=== PATIENT | female | born 1935 | race Caucasian/White ===

== ENCOUNTER 2016-10-21 14:49 | Inpatient (IN) ==
--- NOTE | 2016-10-21 18:40 | HISTORY AND PHYSICAL ---
SUBJECTIVE: Respite care for 5 days. HISTORY OF PRESENT ILLNESS: She is a 81-year-old pleasant white female, was admitted to the hospital respite care for 5 days. She is not offering any complaints. She has been bedridden without any activities of daily living and declining of instrumental activities. PAST MEDICAL HISTORY: Reported dementia, paroxysmal atrial fibrillation, coronary artery disease, hypertension, hyperlipidemia, chronic anxiety, depression, hypothyroidism, history of C. difficile colitis, history of GI bleeding, stage II sacral ulcer. Chronic debility nearly bed bound. PAST SURGICAL HISTORY: Cataract surgery, partial colectomy, hysterectomy, right rotator cuff surgery, scar present in the lower abdomen. MEDICATIONS: Senna 1 tablet p.o. b.i.d., Seroquel 100 daily, potassium 10 mEq daily, Prilosec 20 daily, Macrobid 100 daily, Fleet as needed, Klonopin 1 mg p.o. b.i.d., levothyroxine 75 mcg daily, Roxanol as needed, oxygen as needed, potassium 10 mEq daily, iron C Plus 1 tablet daily, Seroquel 100 at bedtime. ALLERGIES: Sulfa drugs. SOCIAL HISTORY: Lives in [place]. Single, bedridden without any activities of daily living. Living will, do not resuscitate. FAMILY HISTORY: Noncontributory. REVIEW OF SYSTEMS: HEENT: No headache. No vision problem. Cardiopulmonary: No chest pain, shortness of breath, PND, orthopnea. GI: No nausea, vomiting, abdominal pain. : Foul smelling urine. Skin: Had a stage II pressure ulcer on the back. Extremities: No swelling of feet. Contracted. PHYSICAL EXAMINATION: VITAL SIGNS: Stable. GENERAL: Weight 89 pounds, emaciated, contracted, unable to move the left upper extremity and lower extremity. HEENT: Within normal limits. CHEST: Clear. HEART: Sounds are regular. BELLY: Soft, scaphoid, stage II sacral ulcer noted. EXTREMITIES: Dry skin, pes cavus present, contracted in position. ASSESSMENT AND PLAN: 81-year-old white female admitted to the hospital respite care for 5 days. 1. Care of the skin, bladder, and bowels. 2. Stage II pressure ulcer. Continue on DuoDERM patches. 3. Living will, do not resuscitate. 4. Reconcile home medications. 5. Anxiety, depression. Cymbalta 60 p.o. b.i.d., Seroquel 100 bedtime. 6. Hypothyroidism on Synthroid 75 daily. 7. Chronic urinary tract infection prophylaxis on Macrobid. 8. She will stay for next 5 days. cc: Gustavo Love MD
[2016-10-21] MEDS ORDERED: ATIVAN PO PRN (19:03)
[2016-10-21] MEDS ORDERED: COMPAZINE PO PRN (19:04)
[2016-10-21] MEDS ORDERED: COMPAZINE PR PRN (19:05)
[2016-10-21] MEDS ORDERED: LEVSIN-SL SL PRN (19:06)
[2016-10-21] MEDS ORDERED: IMODIUM PO PRN (19:08)
[2016-10-21] MEDS ORDERED: LOMOTIL PO PRN (19:11)
[2016-10-21] MEDS ORDERED: PERICOLACE PO PRN (19:15)
[2016-10-21] MEDS ORDERED: MAALOX PLUS LIQUID PO PRN (19:18)
[2016-10-21] MEDS ORDERED: ROBITUSSIN-DM PO PRN (19:19)
[2016-10-21] MEDS ORDERED: GLYCERIN ADULT PR PRN (19:24)
[2016-10-21] MEDS ORDERED: DULCOLAX PR PRN (19:26)
[2016-10-21] MEDS ORDERED: FLEET ENEMA PR PRN (19:27)
[2016-10-21] MEDS ORDERED: ATROPINE 1 % OPHTH SOLN SL PRN (19:40)
[2016-10-21] MEDS ORDERED: DIFLUCAN PO PRN (19:43)
[2016-10-21] MEDS ORDERED: DESYREL PO PRN (19:44)
[2016-10-21] MEDS ORDERED: BOUDREAUXS BUTT PASTE TOP PRN (19:46)
[2016-10-21] MEDS ORDERED: TYLENOL PR PRN (19:50)
[2016-10-21] MEDS ORDERED: TYLENOL PO PRN (19:50)
[2016-10-21] MEDS ORDERED: EUCERIN CREAM TOP PRN (19:51)
[2016-10-21] MEDS ORDERED: BENADRYL PO PRN (19:52)
[2016-10-21] MEDS ORDERED: PYRIDIUM PO PRN (19:54)
[2016-10-21] MEDS ORDERED: HALDOL PO PRN (19:56)
[2016-10-21] MEDS: KLONOPIN PO SCH (20:15)
[2016-10-21] MEDS: NORCO-7.5 PO PRN (20:15)
[2016-10-21] MEDS: BUSPAR PO SCH (20:16)
[2016-10-21] MEDS: CYMBALTA PO SCH (20:16)
[2016-10-21] MEDS: SEROQUEL PO SCH (20:16)
[2016-10-21] MEDS: ROXANOL CONC. LIQUID PO PRN (23:49)
[2016-10-22] MEDS: NORCO-7.5 PO PRN ×4 (00:27→22:35)
[2016-10-22] MEDS: SYNTHROID PO SCH (06:28)
[2016-10-22] MEDS: PRILOSEC PO SCH (06:28)
[2016-10-22] MEDS: ROXANOL CONC. LIQUID PO PRN ×2 (06:29→17:26)
[2016-10-22] MEDS: BOUDREAUXS BUTT PASTE TOP SCH (08:36)
[2016-10-22] MEDS: KLOR-CON PO SCH (08:37)
[2016-10-22] MEDS: CYMBALTA PO SCH ×2 (08:37→22:34)
[2016-10-22] MEDS: BUSPAR PO SCH ×2 (08:37→22:34)
[2016-10-22] MEDS: KLONOPIN PO SCH ×2 (08:37→22:34)
[2016-10-22] MEDS: MACROBID PO SCH (08:37)
--- NOTE | 2016-10-22 13:43 | PROGRESS NOTE ---
DATE: 10/22/2016 SUBJECTIVE: Ms Roque is respite care. She has dementia, has atrial fibrillation and chronic UTI. Her vital signs are stable. We will continue with the current management. cc: MD Gustavo Odell MD
[2016-10-22] MEDS: SEROQUEL PO SCH (22:34)
[2016-10-23] MEDS: NORCO-7.5 PO PRN ×2 (02:40→21:31)
[2016-10-23] MEDS: PRILOSEC PO SCH ×2 (05:11→08:17)
[2016-10-23] MEDS: SYNTHROID PO SCH ×2 (05:12→08:18)
[2016-10-23] MEDS: ROXANOL CONC. LIQUID PO PRN ×3 (08:21→23:21)
[2016-10-23] MEDS: KLONOPIN PO SCH ×2 (08:22→21:33)
[2016-10-23] MEDS: MACROBID PO SCH (08:22)
[2016-10-23] MEDS: BUSPAR PO SCH ×2 (08:22→21:31)
[2016-10-23] MEDS: KLOR-CON PO SCH (08:22)
[2016-10-23] MEDS: CYMBALTA PO SCH ×2 (08:22→21:31)
[2016-10-23] MEDS: BOUDREAUXS BUTT PASTE TOP SCH (08:23)
--- NOTE | 2016-10-23 15:12 | PROGRESS NOTE ---
DATE: 10/23/2016 Ms. Roque is a respite patient. She has severe dementia. She is somewhat drowsy today. Vital signs are stable. Lungs are clear. Heart sounds are normal. We will continue with the current management. -0 cc: MD Gustavo Odell MD
[2016-10-23] MEDS: SEROQUEL PO SCH (21:31)
[2016-10-24] MEDS: PRILOSEC PO SCH ×2 (05:10→06:29)
[2016-10-24] MEDS: NORCO-7.5 PO PRN (05:11)
[2016-10-24] MEDS: SYNTHROID PO SCH ×2 (05:11→06:30)
[2016-10-24] MEDS: KLONOPIN PO SCH (08:08)
[2016-10-24] MEDS: CYMBALTA PO SCH (08:08)
[2016-10-24] MEDS: KLOR-CON PO SCH (08:10)
[2016-10-24] MEDS: MACROBID PO SCH (08:10)
[2016-10-24] MEDS: BUSPAR PO SCH (08:10)
[2016-10-24] MEDS: BOUDREAUXS BUTT PASTE TOP SCH (09:37)
--- NOTE | 2016-10-24 20:16 | PROGRESS NOTE ---
DATE: 10/24/2016 SUBJECTIVE: Interval history was reviewed. Patient is stable over the weekend. Caregivers are hospital assisting for the nutrition. REVIEW OF SYSTEMS: None reported. OBJECTIVE: Vitals: Stable, afebrile, pulse is 94, blood pressure is 140/79. The patient remains demented, contracted. The rest of the exam is benign. ASSESSMENT AND PLAN: A 81-year-old white female with end-stage dementia, stage II pressure ulcers, admitted to the hospital, respite care. Continue care of the skin, bladder, and bowels. Stage II pressure ulcer. Continue dressing and continue present medical therapy. Recurrent urinary tract infection, on Macrobid prophylaxis. Living will, Do Not Resuscitate LEVEL OF DOCUMENTATION: 15 minutes. cc: Gustavo Love MD
[2016-10-25] MEDS: KLONOPIN PO SCH ×3 (00:12→19:37)
[2016-10-25] MEDS: BUSPAR PO SCH ×2 (00:12→08:38)
[2016-10-25] MEDS: SEROQUEL PO SCH ×2 (00:12→19:37)
[2016-10-25] MEDS: CYMBALTA PO SCH ×3 (00:12→19:37)
[2016-10-25] MEDS: PRILOSEC PO SCH ×2 (05:41→06:01)
[2016-10-25] MEDS: SYNTHROID PO SCH ×2 (05:41→06:01)
[2016-10-25] MEDS: KLOR-CON PO SCH (08:39)
[2016-10-25] MEDS: MACROBID PO SCH (08:39)
[2016-10-25] MEDS: BOUDREAUXS BUTT PASTE TOP SCH (09:05)
[2016-10-25] MEDS: NORCO-7.5 PO PRN (14:04)
[2016-10-25] MEDS: ROXANOL CONC. LIQUID PO PRN (15:14)
--- NOTE | 2016-10-25 18:08 | PROGRESS NOTE ---
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 No complaints. Objective: Vitals: Are stable. Afebrile. Pulse is 90. Blood pressure is 120/73, room air 98%. HEENT: Exam within normal limits. Neck: Supple. No lymphadenopathy. Chest: Clear. Heart: Sounds are regular. Abdomen: Belly is soft, nontender. Good bowel sounds and no masses palpable. Extremities: Sacral ulcer is slowly healing well. ASSESSMENT AND PLAN: 1. Respite care for 5 days. Hopefully will be discharged home in the morning. Continue present medical therapy. 2. Living will, Do Not Resuscitate. LEVEL OF DOCUMENTATION: 15 minutes. cc: Gustavo Love MD
[2016-10-26] MEDS: SEROQUEL PO SCH (01:58)
[2016-10-26] MEDS: BUSPAR PO SCH ×2 (01:58→08:37)
[2016-10-26] MEDS: KLONOPIN PO SCH ×2 (01:58→09:00)
[2016-10-26] MEDS: CYMBALTA PO SCH ×2 (01:59→08:37)
[2016-10-26] MEDS: PRILOSEC PO SCH (05:59)
[2016-10-26] MEDS: SYNTHROID PO SCH (06:00)
[2016-10-26 08:19] VITALS: BP 123/77
[2016-10-26] MEDS: KLOR-CON PO SCH (08:36)
[2016-10-26] MEDS: MACROBID PO SCH (08:36)
--- NOTE | 2016-10-26 21:24 | DISCHARGE SUMMARY ---
ADMISSION DATE: 10/21/2016 DISCHARGE DATE: 10/26/2016 DISCHARGING DIAGNOSIS: 1. Dementia. 2. Paroxysmal atrial fibrillation. 3. Coronary artery disease. 4. Hypertension. 5. Hyperlipidemia. 6. Chronic anxiety/depression. 7. Hypothyroidism. 8. History of Clostridium difficile colitis. 9. Stage II sacral ulcer. 10. PPS score less than 40%. BRIEF HISTORY: Please see the H and P that was done on 10/21/2016. In brief, she is a 81-year- old, pleasant white female, under the care of [facility], admitted to the hospital respite care for 5 days. During this hospital course, she was noted to the stage II pressure ulcer over the sacral area. Wound care was given. The rest of the hospital course was uneventful. She is very emaciated, cachectic, able to eat with assistance. She also was exhibiting some pain which is well controlled. The patient was discharged home stable with the following instructions: 1. Living will, Do Not Resuscitate. 2. Senna 1 tablet p.o. b.i.d., Seroquel 100 daily, potassium 10 mEq daily, Prilosec 20 daily, Macrobid 100 daily, Fleet enemas as needed, Klonopin 1 mg p.o. b.i.d., Synthroid 70 mcg daily, Roxanol as needed for pain, oxygen as needed. Icar C Plus 1 tablet daily. 3. Care of the skin, bladder, and bowels. Continue to monitor her progress through the ID[facility] meetings. cc: Gustavo Love MD
== END 2016-10-26 10:14 | disposition home or self-care (01) ==
LOC: DIRADM 14:49 → 3N 16:24
PROVIDERS: ADMIT Internal Medicine; ATTEND Internal Medicine